=== PATIENT | female | born 1995 | race Caucasian/White ===

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

== ENCOUNTER 2017-01-02 13:24 | Emergency (ER) | payer OTHER | END 2017-01-02 16:14 | disposition home or self-care (01) | LOC: D.ER 13:24 | PROVIDERS: Emergency Medicine | DX: N76.0 Acute vaginitis (principal); N76.5 Ulceration of vagina ==